=== PATIENT | male | born 2000 | race Caucasian/White ===

== ENCOUNTER 2020-09-16 22:23 | Emergency (ER) | payer SELFPAY ==
[~2020-09-16] VITALS: Ht 185.4 cm; Wt 71.2 kg
[2020-09-16] MEDS ORDERED: METRONIDAZOLE 500 MG TAB PO ONE (22:45)
[2020-09-16] MEDS ORDERED: AZITHROMYCIN 250 MG TAB PO ONE (22:45)
[2020-09-16] MEDS ORDERED: CEFTRIAXONE SOD 250 MG VIAL IM ONE (22:45)
--- NOTE | 2020-09-16 22:56 | Emergency Department Note ---
History of Present Illnes History of Present Illness Chief Complaint: General Medicine Complaints History of Present Illness This is a 19 year old male presents to the ed for concerns of burning and discharge from penis that started yesterday. patient has no further complaints at this time. no distress noted, PT STATES HAD UNPROTECTED INTERCOURSE AND HIS PARTNER HAS GONORRHEA . Historian: Patient Arrival Mode: Car Onset (how long ago): day(s) (1) Location: PENIS Quality: DISCHARGE, DYSURIA Radiation: Reports non-radiation Severity: moderate Onset quality: sudden Duration (how long): day(s) (1) Timing of current episode: constant Progression: unchanged Chronicity: recurrent (HAD GONORHEA 2 MONTHS AGO) Relieving factors: none Exacerbating factors: other (URINATION) Associated symptoms: Reports denies other symptoms Treatments prior to arrival: none Past Medical/Family History Physician Review I have reviewed the patient's past medical and family history. Any updates have been documented here. Past Medical History Recent Fever: No Clinical Suspicion of Infectio: No New/Unexplained Change in Ment: No Social History Smoking Cessation: Never Smoker Counseling Performed: No Alcohol Use: None Any Illegal Drug Use: No Review of Systems Review of Systems Constitutional: Reports no symptoms EENTM: Reports no symptoms Cardiovascular: Reports no symptoms Respiratory: Reports no symptoms Gastrointestinal: Reports no symptoms Genitourinary: Reports as per HPI Musculoskeletal: Reports no symptoms Integumentary: Reports no symptoms Neurological: Reports no symptoms Psychological: Reports no symptoms Endocrine: Reports no symptoms Hematological/Lymphatic: Reports no symptoms Physical Exam Related Data Allergies: Coded Allergies: No Known Allergies (Unverified , 09/16/20) Triage Vital Signs Vital Signs Date Time Temp Pulse Resp B/P (MAP) Pulse Ox O2 Delivery O2 Flow Rate FiO2 09/16/20 22:43 99.1 79 22 127/63 100 Room Air Vital signs reviewed: Yes Physical Exam CONSTITUTIONAL Constitutional: Present well-developed, Present well-nourished HENT HENT: Present normocephalic, Present atraumatic, Present oropharynx clear/moist, Present nose normal HENT L/R: Present left ext ear normal, Present right ext ear normal EYES Eyes: Reports PERRL, Reports conjunctivae normal NECK Neck: Present ROM normal PULMONARY Pulmonary: Present effort normal, Present breath sounds normal CARDIOVASCULAR Cardiovascular: Present regular rhythm, Present heart sounds normal, Present capillary refill normal, Present normal rate GASTROINTESTINAL Abdominal: Present soft, Present nontender, Present bowel sounds normal GENITOURINARY Genitourinary: Present exam deferred SKIN Skin: Present warm, Present dry MUSCULOSKELETAL Musculoskeletal: Present ROM normal NEUROLOGICAL Neurological: Present alert, Present oriented x 3, Present no gross motor or sensory deficits PSYCHOLOGICAL Psychological: Present mood/affect normal, Present judgement normal Assessment & Plan Medical Decision Making MDM PT WITH URETHRITIS ROCEPHIN 250 MG IM ZITHROMAX 1 GRAM PO ORDERED FLAGYL 2 GRAMS PO ORDERED Assessment & Plan Final Impression: (1) Urethritis, gonococcal, acute Depart Disposition: HOME, SELF-CARE Last Vital Signs Date Time Temp Pulse Resp B/P (MAP) Pulse Ox O2 Delivery O2 Flow Rate FiO2 09/16/20 22:43 99.1 79 22 127/63 100 Room Air Medications in the ED Metronidazole 2,000 mg ONCE ONCE PO ; Start 09/16/20 at 22:45; Stop 09/16/20 at 22:46; Status UNV Azithromycin 1,000 mg ONCE ONCE PO ; Start 09/16/20 at 22:45; Stop 09/16/20 at 22:46; Status UNV Ceftriaxone Sodium 250 mg ONCE ONCE IM ; Start 09/16/20 at 22:45; Stop 09/16/20 at 22:46; Status UNV RENIA ORTA MD Sep 16, 2020 22:56
[2020-09-16 23:34] VITALS: BP 132/62
== END 2020-09-16 23:35 | disposition home or self-care (01) ==
LOC: ER 23:18
DX: A54.01 Gonococcal cystitis and urethritis, unspecified (principal); R50.9 Fever, unspecified
CPT/HCPCS: 99282; J0696